=== PATIENT | male | born 1990 | race Hispanic/Latino ===

== ENCOUNTER 2017-11-14 15:52 | Emergency (ER) | payer OTHER, SELFPAY ==
[2017-11-14 16:18] LABS: Bilirubin Small (Negative); Blood, Urine Negative (Negative); Clarity CLEAR (Clear); Glucose, Urine (Dipstick) Negative (Negative); Leukocyte Small (Negative); Nitrite Positive (Negative); Protein, Urine (Dipstick) Trace mg/dL (Neg-Trace); Specific Gravity, Urine 1.031 (1.002-1.036); pH, Urine 5.5 (5.0-9.0)
[2017-11-14 16:21] LABS: RBC/HPF 0-3 HPF (0-3); WBC/HPF 0-3 HPF (0-3)
[2017-11-14 16:24] LABS: Pathc Cast-AUWi Flag 2.57 (0-2.49)
[2017-11-14 16:29] LABS: Amphetamine Not Detected (NotDetected); Barbiturates Screen Not Detected (NotDetected); Benzodiazepine Screen Not Detected (NotDetected); Cocaine Metabolite Screen Detected (NotDetected); Medtox Control Line Valid? VALID (VALID); Medtox Reader # READER 4; Methadone Not Detected (NotDetected); Methamphetamine Not Detected (NotDetected); Opiate Screen Not Detected (NotDetected); Oxycodone Screen Not Detected (NotDetected); Phencyclidine (PCP) Not Detected (NotDetected); THC/Cannabinoid Screen Not Detected (NotDetected); Tricyclic Screen Not Detected (NotDetected)
[2017-11-14 16:31] LABS: Bacteria/HPF 1+ HPF (None Seen); Hyaline Casts/LPF 0-3 HYALINE CAST LPF (0-3 Hyaline); Manual Microscopic Reviewed? No Path Casts Seen
[2017-11-14 16:44] LABS: ALT (SGPT) 34 U/L (8-55); AST (SGOT) 45 U/L (5-34); Albumin 3.4 g/dL (3.5-5.0); Alkaline Phosphatase 93 U/L (40-150); Anion Gap 11 mmol/L (10-20); BUN (Urea Nitrogen) 10 mg/dL (8.9-20.6); Bilirubin, Total 2.2 mg/dL (0.2-1.2); Calc. Creatinine Clearance 0 mL/min (70-130); Calcium 8.7 mg/dL (7.8-10.44); Carbon Dioxide 20 mmol/L (22-29); Chloride 111 mmol/L (98-107); Estimated GFR-MDRD Greater than 90; Globulin 2.6 g/dL (2.4-3.5); Glucose 84 mg/dL (70-105); Lipase 35 U/L (8-78); Sodium 138 mmol/L (136-145)
[2017-11-14 16:47] LABS: Acetaminophen Less than 6.0 mcg/mL (10.0-30.0); Alcohol Less than 10 mg/dL (Less than 10); CK (CPK) 73 U/L (30-200); Salicylate Less than 8.0 mg/dL (15.0-30.0)
[2017-11-14 17:01] LABS: #Basophils 0.1 thou/uL (0.0-0.2); #Eosinphils 0.2 thou/uL (0.0-0.7); #Lymphocytes 0.8 thou/uL (1.20-3.40); #Monocytes 0.5 thou/uL (0.11-0.59); #Neutrophils 2.8 thou/uL (1.40-6.50); %Basophils 1.4 % (0.0-1.0); %Eosinophils 3.8 % (0.0-10.0); %Lymphocytes 19.3 % (21.0-51.0); %Monocytes 10.8 % (0.0-10.0); %Neutrophils 64.8 % (42.0-75.0); Band 4 % (5-11); Eosinophils 3 % (0-10); Hemoglobin 15.2 g/dL (14.0-18.0); Lymphocytes 26 % (21-51); MDiff Complete? YES; Macrocytosis SLIGHT = 6-15 cells (100X) (0-5/hpf); Mean Corpuscular HGB CONC 32.6 g/dL (32.0-36.0); Mean Corpuscular Hemoglobin 31.1 pg (27.0-31.0); Mean Corpuscular Volume 95.5 fl (80.0-94.0); Mean Platelet Volume 9.6 fL (7.4-10.4); Monocytes 6 % (0-10); Neutrophil 61 % (42-75); PLT Morphology Comment Appears Decreased; Platelet Count 50 thou/uL (130-400); RBC Distribution Width 13.8 % (11.5-14.5); Red Blood Cell (RBC) Count 4.89 mill/uL (4.70-6.10); White Blood Cell (WBC) Count 4.3 thou/uL (4.8-10.8)
[2017-11-14] MEDS ORDERED: Multivitamins, Adult 10 ML, Thiamine HCl 100 MG, Folic Acid 1 MG in Dextrose 5 %-0.45 %... IV SCH ×4 (18:30)
== END 2017-11-14 22:14 | disposition home or self-care (01) ==
LOC: ERS 15:52
DX: K72.90 Hepatic failure, unspecified without coma (principal); F10.129 Alcohol abuse with intoxication, unspecified; F32.9 Major depressive disorder, single episode, unspecified; Z87.891 Personal history of nicotine dependence
CPT/HCPCS: 36415; 80053; 80306; 80307; 81003; 81015; 82140; 82550; 83690; 84443; 85025; 96365; 96366; J3411; J7042

== ENCOUNTER 2018-04-13 15:44 | Emergency (ER) | payer SELFPAY ==
[2018-04-13 16:37] LABS: #Eosinphils 0.1 thou/uL (0.0-0.7); #Lymphocytes 0.7 thou/uL (1.20-3.40); #Monocytes 0.3 thou/uL (0.11-0.59); %Basophils 0.1 % (0.0-1.0); %Eosinophils 2.7 % (0.0-10.0); %Lymphocytes 21.8 % (21.0-51.0); %Monocytes 10.1 % (0.0-10.0); %Neutrophils 65.3 % (42.0-75.0); Hemoglobin 11.6 g/dL (14.0-18.0); Mean Corpuscular HGB CONC 34.3 g/dL (32.0-36.0); Mean Corpuscular Hemoglobin 32.1 pg (27.0-31.0); Mean Corpuscular Volume 93.7 fL (78.0-98.0); Mean Platelet Volume 9.1 fL (7.4-10.4); Platelet Count 46 thou/uL (130-400); RBC Distribution Width 14.9 % (11.5-14.5); Red Blood Cell (RBC) Count 3.61 mill/uL (4.70-6.10); White Blood Cell (WBC) Count 3.1 thou/uL (4.8-10.8)
--- NOTE | 2018-04-13 16:43 | RAD ---
2 VIEWS CHEST: Date: 04/13/18 COMPARISON: None. HISTORY: Abdominal swelling and shortness of breath. FINDINGS: There is no pneumothorax. Left lung is clear. There is no blunting of the left costophrenic angle. There is increased density in the right lung base with elevation of the right hemidiaphragm and/or ri ght-sided pleural effusion. Partial consolidation/collapse of right middle lobe and/or right lower lo be suspected as well. The gastric air bubble appears medially displaced, which may signify ascites. IMPRESSION: Findings suspicious for right pleural effusion and ascites. Right basilar infectious pneumonitis/aspi ration cannot be excluded. POS: [facility]
[2018-04-13 16:49] LABS: ALT (SGPT) 26 U/L (8-55); AST (SGOT) 48 U/L (5-34); Albumin 2.8 g/dL (3.5-5.0); Alkaline Phosphatase 123 U/L (40-150); Anion Gap 10 mmol/L (10-20); BUN (Urea Nitrogen) 10 mg/dL (8.9-20.6); Bilirubin, Total 1.4 mg/dL (0.2-1.2); Calc. Creatinine Clearance 0 mL/min (70-130); Calcium 8.1 mg/dL (7.8-10.44); Carbon Dioxide 22 mmol/L (22-29); Chloride 110 mmol/L (98-107); Estimated GFR-MDRD Greater than 90; Glucose 92 mg/dL (70-105); Lipase 43 U/L (8-78); Potassium 4.5 mmol/L (3.5-5.1); Protein, Total 5.8 g/dL (6.0-8.3); Sodium 137 mmol/L (136-145)
== END 2018-04-13 19:15 | disposition home or self-care (01) ==
LOC: ERS 15:44
DX: K70.31 Alcoholic cirrhosis of liver with ascites (principal); F32.9 Major depressive disorder, single episode, unspecified; D50.9 Iron deficiency anemia, unspecified; F17.210 Nicotine dependence, cigarettes, uncomplicated; Z79.899 Other long term (current) drug therapy
CPT/HCPCS: 36415; 71046; 80053; 83690; 85025

== ENCOUNTER 2018-11-29 01:31 | Inpatient (IN) | payer SELFPAY ==
[2018-11-29 02:02] LABS: Bilirubin Small (Negative); Blood, Urine Negative (Negative); Clarity CLEAR (Clear); Glucose, Urine (Dipstick) Negative (Negative); Leukocyte Small (Negative); Nitrite Negative (Negative); Protein, Urine (Dipstick) 100 mg/dL (Neg-Trace); Specific Gravity, Urine 1.031 (1.002-1.036); pH, Urine 6.5 (5.0-9.0)
[2018-11-29 02:05] LABS: Bacteria/HPF None Seen HPF (None Seen); Hyaline Casts/LPF 0-3 HYALINE CAST LPF (0-3 Hyaline); RBC/HPF 0-3 HPF (0-3); Squamous Epithelial 0-3 HPF (0-3); WBC/HPF 21-50 HPF (0-3)
[2018-11-29 02:11] LABS: Medtox Reader # READER 4
[2018-11-29 02:12] LABS: Amphetamine Not Detected (NotDetected); Barbiturates Screen Not Detected (NotDetected); Benzodiazepine Screen Not Detected (NotDetected); Cocaine Metabolite Screen Not Detected (NotDetected); Medtox Control Line Valid? VALID (VALID); Methadone Not Detected (NotDetected); Methamphetamine Not Detected (NotDetected); Opiate Screen Not Detected (NotDetected); Oxycodone Screen Not Detected (NotDetected); Phencyclidine (PCP) Not Detected (NotDetected); THC/Cannabinoid Screen Not Detected (NotDetected); Tricyclic Screen Detected (NotDetected)
[2018-11-29 02:36] LABS: ALT (SGPT) 34 U/L (8-55); AST (SGOT) 58 U/L (5-34); Albumin 3.7 g/dL (3.5-5.0); Alkaline Phosphatase 86 U/L (40-150); Anion Gap 14 mmol/L (10-20); BUN (Urea Nitrogen) 10 mg/dL (8.9-20.6); Bilirubin, Total 1.7 mg/dL (0.2-1.2); CK (CPK) 2414 U/L (30-200); Calc. Creatinine Clearance 0 mL/min (70-130); Calcium 8.3 mg/dL (7.8-10.44); Carbon Dioxide 20 mmol/L (22-29); Chloride 109 mmol/L (98-107); Estimated GFR-MDRD Greater than 90; Globulin 3.3 g/dL (2.4-3.5); Glucose 98 mg/dL (70-105); Lipase 26 U/L (8-78); Potassium 3.5 mmol/L (3.5-5.1); Sodium 139 mmol/L (136-145)
[2018-11-29 02:37] LABS: Acetaminophen Less than 6.0 mcg/mL (10.0-30.0); Alcohol Less than 10 mg/dL (Less than 10); Salicylate Less than 8.0 mg/dL (15.0-30.0)
[2018-11-29 02:48] LABS: #Eosinphils 0.1 thou/uL (0.0-0.7); #Lymphocytes 0.3 thou/uL (1.20-3.40); #Monocytes 0.4 thou/uL (0.11-0.59); #Neutrophils 3.9 thou/uL (1.40-6.50); %Basophils 0.2 % (0.0-1.0); %Eosinophils 1.3 % (0.0-10.0); %Lymphocytes 7.3 % (21.0-51.0); %Monocytes 8.3 % (0.0-10.0); %Neutrophils 82.9 % (42.0-75.0); Hemoglobin 13.3 g/dL (14.0-18.0); Mean Corpuscular HGB CONC 33.5 g/dL (32.0-36.0); Mean Corpuscular Hemoglobin 30.1 pg (27.0-31.0); Mean Corpuscular Volume 89.6 fL (78.0-98.0); Platelet Count 37 thou/uL (130-400); Platelet Morphology Comment Appears Decreased; RBC Distribution Width 15.4 % (11.5-14.5); Red Blood Cell (RBC) Count 4.41 mill/uL (4.70-6.10); White Blood Cell (WBC) Count 4.7 thou/uL (4.8-10.8)
[2018-11-29] MEDS ORDERED: Acetaminophen 500 MG TAB ONE (03:25)
[2018-11-29] MEDS ORDERED: Lorazepam 2 MG/ML VIAL SLOW IVP PRN (06:14)
[2018-11-29] MEDS ORDERED: Sodium Chloride 0.9% 1,000 ML IV SCH (06:15)
[2018-11-29] MEDS ORDERED: Ondansetron PF 4 MG/2 ML Vial IVP PRN ×2 (06:15→08:49)
[2018-11-29] MEDS ORDERED: Ondansetron ODT 4 MG TAB PO PRN (06:15)
--- NOTE | 2018-11-29 07:59 | RAD ---
PORTABLE CHEST ONE VIEW: Date: 11-29-18 Time: 1:54 a.m. History: Altered mental status. FINDINGS: Comparison is made with exam of 04-13-18. The heart size is normal. No focal areas of consolidation, pneumothoraces or pleural effusions are se en. IMPRESSION: No acute process. POS: [facility]
[2018-11-29] MEDS ORDERED: Calcium Carbonate 500 MG ChewTAB PO PRN (08:49)
[2018-11-29] MEDS ORDERED: Acetaminophen 650 MG Suppository PR PRN (08:49)
[2018-11-29] MEDS ORDERED: Acetaminophen 325 MG TAB PO PRN (08:49)
[2018-11-29] MEDS ORDERED: Nitroglycerin 0.4 MG TAB (25 Tab Bottle) SL PRN (08:49)
[2018-11-29] MEDS ORDERED: hydrALAZINE 20 MG/ML VIAL SLOW IVP PRN (08:49)
[2018-11-29] MEDS ORDERED: Senokot S 8.6-50 MG TAB PO PRN (08:49)
[2018-11-29] MEDS ORDERED: Sodium Bicarb 50 MEQ/50 ML VIAL ONE (08:54)
[2018-11-29] MEDS ORDERED: Famotidine/PF 20 mg/2ml Vial ONE (08:54)
[2018-11-29] MEDS ORDERED: Sodium Bicarbonate 150 MEQ in Dextrose 5% in Water 1,000 ML IV SCH ×2 (09:00)
[2018-11-29] MEDS ORDERED: Sodium Bicarb 50 MEQ/50 ML Abboject 8.4% SYRINGE IVP SCH (09:00)
[2018-11-29] MEDS: Famotidine/PF 20 mg/2ml Vial SLOW IVP SCH ×2 (09:20→20:31)
[2018-11-29] MEDS ORDERED: Lorazepam 2 MG/ML VIAL ONE ×2 (09:36→23:36)
--- NOTE | 2018-11-29 14:41 | HP ---
PRIMARY CARE PHYSICIAN: None. CHIEF COMPLAINT: Tricyclic overdose. HISTORY OF PRESENTING ILLNESS: Mr. Worrell is a 28-year-old male with past medical history of multiple suicide attempts as well as history of chronic alcoholism and resultant liver cirrhosis with portal hypertension, who presented to the emergency room with above-mentioned complaint. History is mainly obtained through the chart review as the patient is very somnolent at this time and is not able to provide any history. There are no family members are at the bedside. According to the EMS, the patient overdosed on amitriptyline. His girlfriend broke up with him and she reported that he has at least taken 16 pills of 50 mg of amitriptyline. Upon presentation, his blood pressure was 120/79, pulse of 93, respirations 15, temperature 99.1, and he was saturating 98% on room air. He became tachycardic afterwards and EKG was concerning for some QRS prolongation. Center was reportedly consulted and they recommended that he be admitted under observation status for monitoring of his EKG. He is otherwise hemodynamically stable, where a sitter has been arranged for him. His lab examination show thrombocytopenia with a platelet count of 37, which seems to be chronic for this patient, consistent with his history of cirrhosis. Serum chemistry showed creatine kinase elevated to 2414 with normal troponin and normal BNP. Urine had trace leukocyte esterase and wbc's. His drug screen was positive for tricyclics, otherwise negative. Plasma alcohol level less than 10. Chest x-ray without any acute changes. He was seen and examined in the emergency room, where he is still on the ER hold status. PAST MEDICAL HISTORY: According to the record review; history of suicidal ideation, chronic alcoholic cirrhosis with portal hypertension, and gastroesophageal reflux disease. PAST SURGICAL HISTORY: None. PAST PSYCHIATRIC HISTORY: Multiple suicide attempts in the past. Depression and inpatient psych admission in [place] in the past. SOCIAL HISTORY: According to the chart, he drinks socially every week and informed drug abuser with abuse of cocaine and marijuana. Smokes 1 pack cigarettes per day. FAMILY HISTORY: Positive for liver problems and alcoholism. HOME MEDICATIONS: Unobtainable as the patient is very somnolent. None listed in the ER records. ALLERGIES: NO NOTICED MEDICATION ALLERGIES. REVIEW OF SYSTEMS: Cannot be obtained as the patient is extremely somnolent. Difficult to wake up. LABORATORY DATA: Lab examination, CBC shows WBCs 4.7, hemoglobin 13.3, platelet count of 37, and 82% neutrophils. Serum chemistries show bicarb at 20, total bilirubin 1.7, AST 58, and ALT 34. Creatine kinase 2414. TSH normal. BNP normal. Troponin normal. Urinalysis as per HPI. Toxicology positive for TCAs. DIAGNOSTIC STUDIES: Chest x-ray by my review shows no evidence to suggest pleural effusion, edema, or infiltrate. PHYSICAL EXAMINATION: VITAL SIGNS: Most recent vital signs; blood pressure 120/79, pulse of 93, respirations 15, and saturating 98% on room air. GENERAL: Very somnolent, but no acute distress. He is difficult to arouse as he has just received Ativan in the ER. HEENT: Pupils are dilated, but reactive to light. Mucous membrane is slightly dry. No oropharyngeal exudate or erythema. Head is normocephalic and atraumatic. NECK: Supple without any lymphadenopathy, JVD, or bruit. CHEST: Clear to auscultation without any wheezing, rales, or rhonchi. HEART: Rhythm is regular without any murmurs, rubs, or gallops. ABDOMEN: Obese. No fluid wave is noticed. Nondistended. No spider nevi. EXTREMITIES: Free of any cyanosis, clubbing, or edema. NEUROLOGIC: Nonfocal. SKIN: Appears dry. No rashes. PSYCHIATRIC: Diminished attention due to medications. IMPRESSION AND PLAN: 1. Drug overdose. The TCA overdose symptoms are mostly anticholinergic as well as potential cardiac including arrhythmias. The patient's EKG has been ordered every 4 hours. His QRS was still prolonged this morning with some tachycardia, so I will go ahead and start him on a bicarbonate drip after 1 amp of bicarb was IV pushed. We will repeat EKG in few hours. He will be admitted for observation status. He will be kept n.p.o. and started on fluids as above. Again, supportive care would be added. 2. Suicidal ideation. [facility] will be consulted once he is stable and more awake. 3. History of alcoholic cirrhosis. We will monitor his symptoms. No treatment indicated at this time. 4. Pancytopenia secondary to liver cirrhosis. Monitor labs. No acute overt bleeding. 5. Rhabdomyolysis, likely due to overdose. We will continue IV fluids and recheck CPK in the morning. 6. Deep venous thrombosis and gastrointestinal prophylaxis. We will avoid any pharmacological deep venous thrombosis prophylaxis because of thrombocytopenia. Add Pepcid b.i.d. DISPOSITION: Mr. Worrell is currently being admitted to observation floor for drug overdose and suicidal ideation. Estimated length of stay is less than 2 midnights. Further management will depend upon his clinical course. Job ID: [id number]
[2018-11-29 16:23] VITALS: BMI 29.6
[2018-11-29] MEDS: Sodium Chloride 0.9% 1,000 ML IV SCH (20:31)
[2018-11-30 06:10] LABS: #Eosinphils 0.1 thou/uL (0.0-0.7); #Lymphocytes 0.7 thou/uL (1.20-3.40); #Monocytes 0.4 thou/uL (0.11-0.59); %Basophils 0.1 % (0.0-1.0); %Eosinophils 1.6 % (0.0-10.0); %Lymphocytes 13.1 % (21.0-51.0); %Monocytes 7.7 % (0.0-10.0); %Neutrophils 77.6 % (42.0-75.0); Hemoglobin 12.4 g/dL (14.0-18.0); Mean Corpuscular HGB CONC 33.5 g/dL (32.0-36.0); Mean Corpuscular Hemoglobin 29.9 pg (27.0-31.0); Mean Corpuscular Volume 89.4 fL (78.0-98.0); Mean Platelet Volume 12.7 fL (7.4-10.4); Platelet Count 32 thou/uL (130-400); RBC Distribution Width 15.4 % (11.5-14.5); Red Blood Cell (RBC) Count 4.14 mill/uL (4.70-6.10); White Blood Cell (WBC) Count 5.2 thou/uL (4.8-10.8)
[2018-11-30 06:24] LABS: Anion Gap 11 mmol/L (10-20); BUN (Urea Nitrogen) 6 mg/dL (8.9-20.6); CK (CPK) 2984 U/L (30-200); Calc. Creatinine Clearance 198 mL/min (70-130); Calcium 8.1 mg/dL (7.8-10.44); Carbon Dioxide 22 mmol/L (22-29); Chloride 107 mmol/L (98-107); Estimated GFR-MDRD Greater than 90; Glucose 71 mg/dL (70-105); Potassium 3.3 mmol/L (3.5-5.1); Sodium 137 mmol/L (136-145)
[2018-11-30] MEDS: Famotidine/PF 20 mg/2ml Vial SLOW IVP SCH ×2 (07:53→21:55)
[2018-11-30] MEDS: Lorazepam 2 MG/ML VIAL SLOW IVP PRN (07:54)
[2018-11-30] MEDS: Sodium Chloride 0.9% 1,000 ML IV SCH ×4 (07:54→17:42)
--- NOTE | 2018-11-30 15:13 | PDOC.PN ---
- Subjective Encounter Start Date: 11/30/18 Encounter Start Time: 15:12 Subjective: asleep.was awake all night and belligereant -: combative w staff. Now snoring after 1 mg of ativan - Objective MAR Reviewed: Yes Vital Signs & Weight: Vital Signs (12 hours) Temp Pulse Resp BP Pulse Ox 11/30/18 12:00 97.7 F 89 16 132/78 95 11/30/18 07:40 98.9 F 93 16 143/92 H 96 11/30/18 04:09 100.5 F H 107 H 145/83 H 99 Weight Weight 207 lb Result Diagrams: 11/30/18 05:47 11/30/18 05:47 Additional Labs: Laboratory Tests 10/13/16 10/14/16 10/16/16 16:35 05:26 05:36 AST 71 H 59 H Total Bilirubin 5.9 H 4.5 H 2.5 H 11/14/17 04/13/18 11/29/18 16:11 16:18 02:04 AST 45 H 48 H 58 H Total Bilirubin 2.2 H 1.4 H 1.7 H Phys Exam - Physical Examination Constitutional: NAD HEENT: PERRLA, moist MMs, sclera anicteric, oral pharynx no lesions Neck: no nodes, no JVD, supple, full ROM Respiratory: no wheezing, no rales, no rhonchi, clear to auscultation bilateral Cardiovascular: RRR, no significant murmur Gastrointestinal: soft, non-tender, no distention, positive bowel sounds Musculoskeletal: no edema, pulses present Neurological: non-focal, normal sensation, moves all 4 limbs Skin: no rash Dx/Plan (1) Rhabdomyolysis Code(s): M62.82 - RHABDOMYOLYSIS Status: Acute (2) Drug overdose Code(s): T50.901A - POISONING BY UNSP DRUG/MEDS/BIOL SUBST, ACCIDENTAL, INIT Status: Acute (3) Suicide attempt Status: Acute (4) Alcoholic cirrhosis Code(s): K70.30 - ALCOHOLIC CIRRHOSIS OF LIVER WITHOUT ASCITES Status: Chronic Qualifiers: Ascites presence: without ascites Qualified Code(s): K70.30 - Alcoholic cirrhosis of liver without ascites (5) Pancytopenia Code(s): D61.818 - OTHER PANCYTOPENIA Status: Chronic Comment: due to cirrhosis (6) Chronic alcohol use Code(s): F10.10 - ALCOHOL ABUSE, UNCOMPLICATED Status: Chronic Comment: Unknown amount - Plan DVT proph w/SCDs increase IVF. ativan prn -: cbc stable. no overt bleed -: [facility] when awake. -: am labs -: low grade fever today.Check blood Cx. urine Cx-ve.if persist-CXR for ?PNA * . Review of Systems - Review of Systems Other: can not be obtained due to somnolence - Medications/Allergies Allergies/Adverse Reactions: Allergies Allergy/AdvReac Type Severity Reaction Status Date / Time No Known Drug Allergies Allergy Verified 10/13/16 20:17 Medications: Current Medications Acetaminophen (Tylenol) 650 mg PO Q4H PRN PRN Reason: Headache/Fever/Mild Pain (1-3) Acetaminophen (Tylenol) 650 mg ID Q4H PRN PRN Reason: Fever > 101 Calcium Carbonate (Tums) 1,000 mg PO Q4H PRN PRN Reason: Heartburn or Indigestion Famotidine (Pepcid) 20 mg SLOW IVP Q12HR [facility] Last Admin: 11/30/18 07:53 Dose: 20 mg Hydralazine HCl (Apresoline) 10 mg SLOW IVP Q4H PRN PRN Reason: SBP > 180 and HR < 70 Sodium Chloride (Normal Saline 0.9%) 1,000 mls @ 150 mls/hr IV .Q6H40M [facility] Last Admin: 11/30/18 12:07 Dose: 1,000 mls Lorazepam (Ativan) 1 mg SLOW IVP Q4H PRN PRN Reason: .AGITATION Last Admin: 11/30/18 07:54 Dose: 1 mg Nitroglycerin (Nitrostat) 0.4 mg SL Q5MIN PRN PRN Reason: Chest Pain Ondansetron HCl (Zofran) 4 mg IVP Q6H PRN PRN Reason: Nausea/Vomiting Senna/Docusate Sodium (Senokot S) 2 tab PO BID PRN PRN Reason: Constipation Sodium Chloride (Flush - Normal Saline) 10 ml IVF Q12HR [facility] Last Admin: 11/30/18 12:07 Dose: Not Given Sodium Chloride (Flush - Normal Saline) 10 ml IVF PRN PRN PRN Reason: Saline Flush
[2018-12-01] MEDS: Sodium Chloride 0.9% 1,000 ML IV SCH ×3 (00:04→15:15)
[2018-12-01 05:56] LABS: #Eosinphils 0.1 thou/uL (0.0-0.7); #Lymphocytes 0.5 thou/uL (1.20-3.40); #Monocytes 0.4 thou/uL (0.11-0.59); #Neutrophils 2.8 thou/uL (1.40-6.50); %Basophils 0.6 % (0.0-1.0); %Eosinophils 3.6 % (0.0-10.0); %Lymphocytes 13.5 % (21.0-51.0); %Monocytes 9.2 % (0.0-10.0); Hemoglobin 12.4 g/dL (14.0-18.0); Mean Corpuscular HGB CONC 34.7 g/dL (32.0-36.0); Mean Corpuscular Hemoglobin 30.6 pg (27.0-31.0); Mean Corpuscular Volume 88.4 fL (78.0-98.0); Mean Platelet Volume 12.1 fL (7.4-10.4); Platelet Count 33 thou/uL (130-400); RBC Distribution Width 15.2 % (11.5-14.5); Red Blood Cell (RBC) Count 4.05 mill/uL (4.70-6.10); White Blood Cell (WBC) Count 3.8 thou/uL (4.8-10.8)
[2018-12-01 06:16] LABS: Anion Gap 14 mmol/L (10-20); BUN (Urea Nitrogen) 7 mg/dL (8.9-20.6); CK (CPK) 1433 U/L (30-200); Calc. Creatinine Clearance 201 mL/min (70-130); Carbon Dioxide 20 mmol/L (22-29); Chloride 108 mmol/L (98-107); Estimated GFR-MDRD Greater than 90; Glucose 67 mg/dL (70-105); Potassium 3.5 mmol/L (3.5-5.1); Sodium 138 mmol/L (136-145)
[2018-12-01] MEDS: Lorazepam 2 MG/ML VIAL SLOW IVP PRN (06:46)
[2018-12-01] MEDS: Famotidine/PF 20 mg/2ml Vial SLOW IVP SCH (08:23)
--- NOTE | 2018-12-01 08:54 | EKG ---
Test Reason : Blood Pressure : / mmHG Vent. Rate : 100 BPM Atrial Rate : 100 BPM P-R Int : 168 ms QRS Dur : 110 ms QT Int : 374 ms P-R-T Axes : 055 047 003 degrees QTc Int : 482 ms Normal sinus rhythm Prolonged QT Abnormal ECG Confirmed by DR. Tayla NATION ([id number]) on 12/01/2018 8:54:13 AM Referred By: SOL Confirmed By:DR. Tayla NATION
--- NOTE | 2018-12-01 12:10 | PDOC.PN ---
- Subjective Encounter Start Date: 12/01/18 Encounter Start Time: 11:25 Subjective: no suicidal thoughts or ideas -: awake and oriented well -: says he took 3 or 4 tabs of amitryptiline to sleep bcos of stress - Objective MAR Reviewed: Yes Vital Signs & Weight: Vital Signs (12 hours) Temp Pulse Resp BP Pulse Ox 12/01/18 08:55 98.8 F 78 20 138/89 96 12/01/18 05:40 98.4 F 81 16 147/97 H 97 12/01/18 01:10 98.4 F 88 16 138/94 H 96 Weight Weight 207 lb I&O: 11/30/18 12/01/18 12/02/18 06:59 06:59 06:59 Intake Total 1200 Output Total 1400 Balance -200 Result Diagrams: 12/01/18 04:56 12/01/18 04:56 Phys Exam - Physical Examination HEENT: PERRLA, moist MMs Neck: no JVD, supple Respiratory: no wheezing, no rales Cardiovascular: RRR, no significant murmur Gastrointestinal: soft, non-tender, positive bowel sounds Musculoskeletal: no edema, pulses present Neurological: non-focal, moves all 4 limbs Psychiatric: normal affect, A&O x 3 Dx/Plan (1) Drug overdose Code(s): T50.901A - POISONING BY UNSP DRUG/MEDS/BIOL SUBST, ACCIDENTAL, INIT Status: Acute Qualifiers: Encounter type: subsequent encounter (2) Rhabdomyolysis Code(s): M62.82 - RHABDOMYOLYSIS Status: Acute (3) Alcoholic cirrhosis Code(s): K70.30 - ALCOHOLIC CIRRHOSIS OF LIVER WITHOUT ASCITES Status: Chronic Qualifiers: Ascites presence: without ascites Qualified Code(s): K70.30 - Alcoholic cirrhosis of liver without ascites (4) Thrombocytopenia Code(s): D69.6 - THROMBOCYTOPENIA, UNSPECIFIED Status: Chronic - Plan hemo/neurostable -: dc iv fluids, remove gonzalez -: DC plan per [facility] adv, says he is not suicidal -: lives with his girl friend, has siblings in town -: to amb as tolerated, reg diet * . Review of Systems - Medications/Allergies Allergies/Adverse Reactions: Allergies Allergy/AdvReac Type Severity Reaction Status Date / Time No Known Drug Allergies Allergy Verified 10/13/16 20:17 Medications: Current Medications Acetaminophen (Tylenol) 650 mg PO Q4H PRN PRN Reason: Headache/Fever/Mild Pain (1-3) Acetaminophen (Tylenol) 650 mg AR Q4H PRN PRN Reason: Fever > 101 Calcium Carbonate (Tums) 1,000 mg PO Q4H PRN PRN Reason: Heartburn or Indigestion Famotidine (Pepcid) 20 mg SLOW IVP Q12HR [facility] Last Admin: 12/01/18 08:23 Dose: 20 mg Hydralazine HCl (Apresoline) 10 mg SLOW IVP Q4H PRN PRN Reason: SBP > 180 and HR < 70 Sodium Chloride (Normal Saline 0.9%) 1,000 mls @ 150 mls/hr IV .Q6H40M [facility] Last Admin: 12/01/18 06:28 Dose: 1,000 mls Lorazepam (Ativan) 1 mg SLOW IVP Q4H PRN PRN Reason: .AGITATION Last Admin: 12/01/18 06:46 Dose: 1 mg Nitroglycerin (Nitrostat) 0.4 mg SL Q5MIN PRN PRN Reason: Chest Pain Ondansetron HCl (Zofran) 4 mg IVP Q6H PRN PRN Reason: Nausea/Vomiting Senna/Docusate Sodium (Senokot S) 2 tab PO BID PRN PRN Reason: Constipation Sodium Chloride (Flush - Normal Saline) 10 ml IVF Q12HR [facility] Last Admin: 12/01/18 08:24 Dose: Not Given Sodium Chloride (Flush - Normal Saline) 10 ml IVF PRN PRN PRN Reason: Saline Flush
[2018-12-01] MEDS ORDERED: Famotidine 20 MG TAB PO SCH (21:00)
[2018-12-02 08:38] VITALS: BP 121/88; TEMP 98
[2018-12-02] MEDS ORDERED: Folic Acid 1 MG TAB PO SCH (09:00)
[2018-12-02] MEDS ORDERED: Propranolol 10 MG TAB PO SCH (09:00)
--- NOTE | 2018-12-02 12:48 | PDOC.PN ---
- Subjective Encounter Start Date: 12/02/18 Encounter Start Time: 08:15 Subjective: awake and oriented, is trying to order his breakfast -: feels good, is amb in room - Objective MAR Reviewed: Yes Vital Signs & Weight: Vital Signs (12 hours) Temp Pulse Resp BP Pulse Ox 12/02/18 08:38 98.0 F 78 16 121/88 96 12/02/18 08:00 96 Weight Weight 207 lb I&O: 12/01/18 12/02/18 12/03/18 06:59 06:59 06:59 Intake Total 1200 500 Output Total 1400 Balance -200 500 Result Diagrams: 12/01/18 04:56 12/01/18 04:56 Phys Exam - Physical Examination HEENT: PERRLA, moist MMs Neck: no JVD, supple Respiratory: no wheezing, no rales Cardiovascular: RRR, no significant murmur Gastrointestinal: soft, non-tender, no distention, positive bowel sounds Musculoskeletal: no edema, pulses present Neurological: non-focal, moves all 4 limbs Psychiatric: A&O x 3 Dx/Plan (1) Drug overdose Code(s): T50.901A - POISONING BY UNSP DRUG/MEDS/BIOL SUBST, ACCIDENTAL, INIT Status: Resolved Qualifiers: Encounter type: subsequent encounter (2) Rhabdomyolysis Code(s): M62.82 - RHABDOMYOLYSIS Status: Acute (3) Alcoholic cirrhosis Code(s): K70.30 - ALCOHOLIC CIRRHOSIS OF LIVER WITHOUT ASCITES Status: Chronic Qualifiers: Ascites presence: without ascites Qualified Code(s): K70.30 - Alcoholic cirrhosis of liver without ascites (4) Thrombocytopenia Code(s): D69.6 - THROMBOCYTOPENIA, UNSPECIFIED Status: Chronic - Plan hemostable -: may dc home -: to f/u with [facility] as adv and pcp in 1 week * .
--- NOTE | 2018-12-03 16:24 | DIS ---
DATE OF ADMISSION: 11/30/2018 DATE OF DISCHARGE: 12/02/2018 DISCHARGE DISPOSITION: To home. PRIMARY DISCHARGE DIAGNOSES: Suspected drug overdose (amitriptyline); rhabdomyolysis, resolving. SECONDARY DISCHARGE DIAGNOSES: History of chronic alcoholic cirrhosis with thrombocytopenia. PROCEDURES DONE DURING HOSPITALIZATION: Chest x-ray done showed no acute process. Blood cultures x2, no growth. Urine culture, no growth. H and H 12 and 35, platelet count is 73, and MCV is 88. Initial CK level was 2414 with discharge numbers of 1433. Troponin x1 negative. BNP less than 10. TSH 3.03. Lipase was 26. T-bilirubin 1.7, AST 58, ALT 34, and alkaline phosphatase 86. Urine drug screen was positive for tricyclics. Plasma alcohol less than 10. DISCHARGE MEDICATIONS: 1. Folic acid 1 mg daily. 2. Thiamine 100 mg daily. 3. Spironolactone 100 mg twice daily. 4. Propranolol 10 mg 3 times daily. 5. Protonix 40 mg daily. 6. Lactulose 20 g p.o. daily. ALLERGIES: NO KNOWN DRUG ALLERGIES. DISCHARGE PLAN: The patient is to follow up with [facility] as advised and primary care physician in 1 week. BRIEF COURSE DURING HOSPITALIZATION: The patient initially got admitted on the with suspected tricyclic overdose. The patient also had acute encephalopathy on arrival. He was suspected to have taken 16 pills of 50 mg amitriptyline. The patient was closely monitored on the telemetry. He also had initial rhabdomyolysis, which is resolving. Two days into hospitalization, the patient's CK levels have been trending down. He is also more oriented and awake. The patient admitted to taking 4 tablets of amitriptyline to sleep. He has known history of alcoholic cirrhosis and continues to drink. The patient said he was not suicidal and was just stressed out and wanted to sleep, hence the 4 tablets that he took. He was evaluated by [facility] as well. He has a safety plan. He was counseled regarding alcohol cessation in view of alcoholic cirrhosis with thrombocytopenia as well. Please see the [id number] documentation for the day [facility] discharge [facility]. Prior to discharge, he is ambulating and eating. Job ID: [id number]
== END 2018-12-02 12:49 | disposition home or self-care (01) | DRG 918 ==
LOC: ERS 01:31 → ERHOLD 03:00 → 2NO 14:49 → OBSVTOIN 11-30 15:11 → T4-B 11-30 20:03
PROVIDERS: ADMIT Hospitalist; ATTEND Hospitalist
DX: T43.011A Poisoning by tricyclic antidepressants, accidental (unintentional), initial encounter (principal); M62.82 Rhabdomyolysis; G93.40 Encephalopathy, unspecified; K21.9 Gastro-esophageal reflux disease without esophagitis; F32.9 Major depressive disorder, single episode, unspecified; F17.210 Nicotine dependence, cigarettes, uncomplicated; K70.30 Alcoholic cirrhosis of liver without ascites; F10.10 Alcohol abuse, uncomplicated; D69.6 Thrombocytopenia, unspecified; Z71.41 Alcohol abuse counseling and surveillance of alcoholic
CPT/HCPCS: 36415; 51702; 71045; 80048; 80053; 80306; 80307; 81003; 81015; 82550; 83690; 83880; 84443; 84484; 85025; 87040; 87086; 93005; 93010; 94760; 96361; 96365; 96366; 96375; J2060; J7070; S0028